=== PATIENT | female | born 1990 | race Hispanic/Latino ===

== ENCOUNTER 2018-08-28 01:51 | Inpatient (IN) | payer OTHER ==
[2018-08-28 02:32] VITALS: BMI 25.6
[2018-08-28] MEDS ORDERED: Lactated Ringer's 1,000 ML IV SCH (02:45)
[2018-08-28] MEDS ORDERED: Penicillin G Potassium 5 MU in Sodium Chloride 0.9% 50 ML IVPB ONE (02:45)
[2018-08-28] MEDS ORDERED: Lactated Ringer's 1,000 ML IV ONE (02:45)
--- NOTE | 2018-08-28 02:55 | OBADHP ---
Datetime: 08/28/2018 02:47 Admit Comment, IP Provider: 27-year-old at 41 weeks and 2 days gestational age with spontaneou s rupture of membranes. Patient reports gush of fluid. Patient denies any contractions or vaginal b leeding. Patient reports good movement. records reviewed. Past medical history anemia Past surgical history denies Medications vitamins, ferrous sulfate No known drug allergies Obstetrical history Assessment: Spontaneous rupture of membranes, heart tracing category 1, GBS positive Plan: Admit for management of labor and delivery Penicillin G IV for GBS prophylaxis Observation at this time, consider Pitocin augmentation if indicated Discussed plan with patient and all patient questions answered. Pelvic Type - PN: Adequate Extremities - PN: Normal Abdomen - PN: Normal Back - PN: Normal Breast - PN: Normal Lungs - PN: Normal Heart - PN: Normal Thyroid - PN: Normal Neurologic - PN: Normal HEENT - PN: Normal General - PN: Normal FHR - Baseline A Provider: 120s Amniotic Fluid Color, Provider: Clear Membranes, Provider: Ruptured Contraction Comments Provider: q2-4min Comments, ACOG Physical Exam: Adequate pelvis Cephalic via exam Estimated weight 7-1/2 pounds Pool Provider: Positive IP Hx Assessment: The History has been Reviewed and is Current Vital Signs Provider: Reviewed; Within Normal Limits IP Chief Complaint: Suspected ruptured membranes NICHD Variability Prov Fetus A: Moderate 6-25bpm NICHD Accel Fetus A IP Provider: 15X15 FHR Category Provider Fetus A: Category I NICHD Decel Fetus A IP Provider: None Dilatation, Provider: 1 Effacement, Provider: 25 Station, Provider: -2 Genitourinary Exam: Normal DTRs - PN: Normal EGA AdmitDate IP: 41.2 IP Adm Impression: Term, intrauterine ; No Active Labor; Ruptured Membranes IP Admit Plan: Admit to unit
[2018-08-28 03:33] VITALS: O2SAT 100
[2018-08-28 04:04] LABS: BASO % 0.1 % (0.0-2.0); EOS # 0.1 K/uL (0.0-0.7); EOS % 0.9 % (0.0-4.0); HEMOGLOBIN 11.4 g/dL (12.0-16.0); LYMPH # 1.6 K/uL (1.0-4.3); LYMPH % 13.4 % (20.0-40.0); MEAN CELL VOLUME 90.1 fl (81.0-99.0); MEAN CORPUSCULAR HEMOGLOBIN 30.7 pg (27.0-31.0); MEAN CORPUSCULAR HGB CONC 34.1 g/dL (33.0-37.0); MEAN PLATELET VOLUME 9.2 fl (7.2-11.7); MONO # 0.9 K/uL (0.0-0.8); MONO % 7.3 % (0.0-10.0); NEUT # 9.2 K/uL (1.8-7.0); NEUT % 78.3 % (50.0-75.0); NRBC % 0.1 % (0.0-0.0); RBC 3.71 Mil/uL (3.80-5.20); RED CELL DISTRIBUTION WIDTH 14.6 % (11.5-14.5); WHITE BLOOD COUNT 11.8 K/uL (4.8-10.8)
[2018-08-28] MEDS ORDERED: Oxytocin 30 UNIT in NS 500 ml 30 UNITS/500 ML BAG IV ONE (09:40)
[2018-08-28] MEDS: Lactated Ringer's 1,000 ML IV SCH ×3 (12:14→20:14)
--- NOTE | 2018-08-28 12:46 | OBPN ---
Datetime: 08/28/2018 12:27 IP Procedures: Sterile Vag Exam IP Progress Plan: Continue present management; Augmentation Contraction Comments Provider: q2-3min FHR - Baseline A Provider: 120s IP Progress Note Comment: Patient requesting nitrous oxide. heart tracing category 1. Discus sed plan with patient and all patient questions answered. NICHD Accel Fetus A IP Provider: 15X15 FHR Category Provider Fetus A: Category I NICHD Variability Prov Fetus A: Moderate 6-25bpm Dilatation, Provider: 3 Effacement, Provider: 100 Station, Provider: -2 NICHD Decel Fetus A IP Provider: None Datetime: 08/28/2018 02:47 Pool Provider: Positive Membranes, Provider: Ruptured Amniotic Fluid Color, Provider: Clear Vital Signs Provider: Reviewed; Within Normal Limits
--- NOTE | 2018-08-28 14:03 | OBPN ---
Datetime: 08/28/2018 13:59 IP Procedures: Sterile Vag Exam IP Progress Plan: Continue present management; Augmentation Contraction Comments Provider: q2-3min FHR - Baseline A Provider: 120s-130s IP Progress Note Comment: Pt requesting IV pain medication. FHT category I. IV nubain ordered. Co ntinue current management. Discussed plan with patient and all patient questions answered. Vital Signs Provider: Reviewed; Within Normal Limits NICHD Accel Fetus A IP Provider: 15X15 FHR Category Provider Fetus A: Category I NICHD Variability Prov Fetus A: Moderate 6-25bpm Dilatation, Provider: 4 Effacement, Provider: 100 Station, Provider: -1 NICHD Decel Fetus A IP Provider: None
[2018-08-28] MEDS ORDERED: Nalbuphine HCL 10 mg/ml Ampule ONE (14:27)
[2018-08-28] MEDS ORDERED: Nalbuphine HCL 10 mg/ml Ampule IVP ONE (14:30)
[2018-08-28] MEDS ORDERED: Fentanyl/Bupivacaine HCl 250 ML EPI ONE (15:33)
--- NOTE | 2018-08-28 19:10 | OBPN ---
Datetime: 08/28/2018 19:05 IP Procedures: Sterile Vag Exam IP Progress Plan: Continue present management; Augmentation Contraction Comments Provider: q2-3min FHR - Baseline A Provider: 120s-130s IP Progress Note Comment: Pt resting comfortably s/p epidural. FHT category I. Plan to continue cu rrent management. Discussed plan with patient and all patient questions answered. Vital Signs Provider: Reviewed; Within Normal Limits NICHD Accel Fetus A IP Provider: 15X15 FHR Category Provider Fetus A: Category I NICHD Variability Prov Fetus A: Moderate 6-25bpm Dilatation, Provider: 9 Effacement, Provider: 100 Station, Provider: 0 NICHD Decel Fetus A IP Provider: None
[2018-08-28] MEDS ORDERED: Bupivacaine HCl 0.25% PF (10 ml) Inj ONE (20:58)
[2018-08-28] MEDS ORDERED: Lidocaine 1% Inj (20ml) ONE (23:54)
[2018-08-29] MEDS ORDERED: Oxycodone/Acetaminophen 5/325 mg Tab PO PRN ×2 (00:33)
[2018-08-29] MEDS ORDERED: Benzocaine/Menthol SPRAY TOP PRN (00:33)
[2018-08-29] MEDS ORDERED: Oxytocin 30 UNIT in NS 500 ml 30 UNITS/500 ML BAG IV ONE (01:29)
[2018-08-29] MEDS ORDERED: OXYTOCIN/0.9 % NS 20 UNIT/1,000 ML BAG IV SCH (01:30)
[2018-08-29 06:18] LABS: HEMOGLOBIN 9.6 g/dL (12.0-16.0); MEAN CELL VOLUME 89.4 fl (81.0-99.0); MEAN CORPUSCULAR HEMOGLOBIN 30.4 pg (27.0-31.0); RBC 3.16 Mil/uL (3.80-5.20); RED CELL DISTRIBUTION WIDTH 14.7 % (11.5-14.5); WHITE BLOOD COUNT 16.9 K/uL (4.8-10.8)
--- NOTE | 2018-08-29 10:27 | OBPPN ---
Datetime: 08/29/2018 10:22 PP Pain Prov: Within normal limits PP Nausea Prov: Denies PP Flatus Prov: Yes PP Breasts Prov: Normal PP Heart Prov: Normal PP Lungs Prov: Normal PP Abdomen/Uterus Prov: Normal PP Lochia Prov: Normal PP Vulva/Perineum Prov: Normal PP CVA Tenderness Prov: Normal PP Extremities Prov: Normal PP Comments Phys Exam Prov: Fundus firm under umbilicus PP Impression Prov: Normal progression PP Plan Prov: Continue present management PP Progress Note Prov: Patient denies CP, no SOB, no N/V, tolerating PO diet, ambulating/voiding wel l, mild lochia, abdominal pain tolerable with meds A/P PPD #0 1. Continue post- orders 2. Motrin prn pain 3. Encourage ambulation/ IP PP Procedures: None Vital Signs Provider PP: Reviewed; Within Normal Limits
--- NOTE | 2018-08-30 10:21 | OBPPN ---
Datetime: 08/30/2018 10:19 PP Pain Prov: Within normal limits PP Nausea Prov: Denies PP Flatus Prov: Yes PP BM Prov: Yes PP Breasts Prov: Normal PP Heart Prov: Normal PP Lungs Prov: Normal PP Abdomen/Uterus Prov: Normal PP Lochia Prov: Normal PP Vulva/Perineum Prov: Normal PP CVA Tenderness Prov: Normal PP Extremities Prov: Normal PP Impression Prov: Normal progression PP Plan Prov: Discharge PP Progress Note Prov: She feels fine No dizziness; no VB H/H 02/25 A: S/P day 2 anemia asymptomatic PLAN: Fe Follow up 6w Vital Signs Provider PP: Reviewed; Within Normal Limits
--- NOTE | 2018-08-30 10:26 | OBDCSUM ---
Datetime: 08/30/2018 10:20 Discharged to, Provider: Home Follow up at, Provider: Gregorio Disch Instr Activity: Normal activity Disch Instr Diet: Regular Discharge Instructions, Provider: Routine instructions given Discharge Diagnosis, Provider: Term Delivered Follow up in weeks, Provider: 6w Disch Referrals: None Contraception discussed, Prov: Yes Disch Activity Restrictions: No sexual activity; Nothing in vagina - [place], tampons, douche
--- NOTE | 2018-08-30 10:26 | OBDS ---
DELIVERY PERSONNEL Delivery Doctor: Carla Manriquez DO Scalping Machine Operator: Beatriz Ribera RN Anesthesiologist: Cuco Lindsey MD MATERNAL INFORMATION Delivery Anesthesia: Local; Epidural Medications in Delivery: Oxytocin Placenta Cultured: No Maternal Complications: None Provider Comments: Over intact perineum, of live infan female. Once the head was delivered, sh e attempted to push once. [place] and suprapubic pressure applied. With next CTX, infant was deli hollie. Mother was assisted to place baby onto her chest. was crying spontaneously. AGPAR 9 ,9. Cord blood was obtained. Stem cell collection was performed. Placenta was delivered intact spo ntaneoulsy. EBL 100cc. She remained stable LABOR SUMMARY EDC: 08/19/2018 00:00 No. Babies in Womb: 1 Attempted: No Labor Anesthesia: Epidural LABOR INFORMATION Reason for Induction: Not Applicable Onset of Labor: 08/28/2018 17:00 Complete Dilatation: 08/29/2018 22:20 Oxytocin: Augmentation Group B Beta Strep: Positive Antibiotics # of Doses: 5 Antibiotics Time of Last Dose: 2011 Steroids Given: None Reason Steroids Not Administered: Not Applicable MEMBRANES Membranes Rupture Method: Spontaneous Rupture of Membranes: 08/28/2018 00:40 Length of Rupture (hrs): 23.43 Amniotic Fluid Color: Clear Amniotic Fluid Amount: None Amniotic Fluid Odor: Normal STAGES OF LABOR Stage 1 hrs: 29 Stage 1 min: 20 Stage 2 hrs: -22 Stage 2 min: -14 Stage 3 hrs: 0 Stage 3 min: 15 Total Time in Labor hrs: 7 Total Time in Labor min: 21 VAGINAL DELIVERY Episiotomy: None Laceration Extension: First Degree Laceration Type: Perineal Laceration Repair: Yes Laceration Repair Note: 1% Lidocaine infiltrated (2cc). 1st degree laceration repaired with 2.0 Vito ryl Rapide suture (figure of eight) once Initial Vag Sponge Count: 5 Final Vag Sponge Count: 5 Initial Vag Sharps Count: 2 Final Vag Sharps Count: 2 Sponge Count Correct: Yes Sharps Count Correct: Yes Count Comment: 5 lap pads one syringe BABY A INFORMATION Infant Delivery Date/Time: 08/29/2018 00:06 Method of Delivery: Vaginal Born in Route : No : N/A Forceps: N/A Vacuum Extraction: N/A Shoulder Dystocia : Yes SHOULDER DYSTOCIA BABY A Delivery of Head: 08/29/2018 00:05 Delivery Date/Time: 08/29/2018 00:06 Time Head to Delivery : 1.0 1st Intervention to Resolve: Gentle Attempt at Traction, Assisted by Maternal Expulsive Efforts 2nd Intervention to Resolve: McRobert's Maneuver 3rd Intervention to Resolve: Suprapubic Pressure Verify NO Fundal Pressure: No Fundal Pressure Applied Arm Under Symphisis at Del: Right PRESENTATION/POSITION BABY A Presentation: Cephalic Cephalic Presentation: Vertex Vertex Position: Right Occipital Anterior Breech Presentation: N/A PLACENTA INFORMATION BABY A Placenta Delivery Time : 08/29/2018 00:21 Placenta Method of Delivery: Spontaneous Placenta Status: Delivered SCORES BABY A Heart Rate 1 min: >100 bpm Resp Effort 1 min: Good Cry Reflex Irritability 1 min: Cough or Sneeze or Pulls Away Muscle Tone 1 min: Active Motion Color 1 min: Body [place], Extremities Blue Resuscitation Effort 1 min: Tactile Stimulation SCORE 1 MIN: 9 Heart Rate 5 min: >100 bpm Resp Effort 5 min: Good Cry Reflex Irritability 5 min: Cough or Sneeze or Pulls Away Muscle Tone 5 min: Active Motion Color 5 min: Body [place], Extremities Blue Resuscitation Effort 5 min: Tactile Stimulation SCORE 5 MIN: 9 INFANT INFORMATION BABY A Gestational Age at Delivery: 41.3 Gestational Status: Term Outcome : Liveborn Infant Condition : Stable Infant Sex: Female IDENTIFICATION/MEDS BABY A ID Band Number: [id number] ID Band Location: Left Leg; Left Arm WEIGHT/LENGTH BABY A Infant Birthweight (gms): 3330 Infant Weight (lb): 7 Weight (oz): 5 CORD INFORMATION BABY A No. Cord Vessels: 3 Nuchal Cord : N/A Cord Blood Taken: Yes Suction: Mouth; Nose ASSESSMENT BABY A Infant Complications: None Physical Findings at Delivery: Within Normal Limits Respirations: Appears Normal Herbarium Curator/ALS Called : No Care By: Kasia Ribera RN Transferred To: Remains with Mother
--- NOTE | 2018-08-30 10:27 | OBDS ---
DELIVERY PERSONNEL Delivery Doctor: Carla Manriquez DO Adjunct Faculty Instructor: Beatriz Ribera RN Anesthesiologist: Cuco Lindsey MD MATERNAL INFORMATION Delivery Anesthesia: Local; Epidural Medications in Delivery: Oxytocin Placenta Cultured: No Maternal Complications: None Provider Comments: Over intact perineum, of live infan female. Once the head was delivered, sh e attempted to push once. Lizette and suprapubic pressure applied. With next CTX, infant was deli hollie. Mother was assisted to place baby onto her chest. was crying spontaneously. AGPAR 9 ,9. Cord blood was obtained. Stem cell collection was performed. Placenta was delivered intact spo ntaneoulsy. EBL 100cc. She remained stable LABOR SUMMARY EDC: 08/19/2018 00:00 No. Babies in Womb: 1 Attempted: No Labor Anesthesia: Epidural LABOR INFORMATION Reason for Induction: Not Applicable Onset of Labor: 08/28/2018 17:00 Complete Dilatation: 08/29/2018 22:20 Oxytocin: Augmentation Group B Beta Strep: Positive Antibiotics # of Doses: 5 Antibiotics Time of Last Dose: 2011 Steroids Given: None Reason Steroids Not Administered: Not Applicable MEMBRANES Membranes Rupture Method: Spontaneous Membranes Rupture Method: Spontaneous Membranes Rupture Method: Spontaneous Rupture of Membranes: 08/28/2018 00:40 Rupture of Membranes: 08/28/2018 00:40 Rupture of Membranes: 08/28/2018 00:40 Length of Rupture (hrs): 23.43 Length of Rupture (hrs): 23.43 Length of Rupture (hrs): 23.43 Amniotic Fluid Color: Clear Amniotic Fluid Color: Clear Amniotic Fluid Color: Clear Amniotic Fluid Amount: None Amniotic Fluid Amount: Moderate Amniotic Fluid Amount: Moderate Amniotic Fluid Odor: Normal Amniotic Fluid Odor: Normal Amniotic Fluid Odor: Normal STAGES OF LABOR Stage 1 hrs: 29 Stage 1 min: 20 Stage 2 hrs: -22 Stage 2 min: -14 Stage 3 hrs: 0 Stage 3 min: 15 Total Time in Labor hrs: 7 Total Time in Labor min: 21 VAGINAL DELIVERY Episiotomy: None Laceration Extension: First Degree Laceration Type: Perineal Laceration Repair: Yes Laceration Repair Note: 1% Lidocaine infiltrated (2cc). 1st degree laceration repaired with 2.0 Vito ryl Rapide suture (figure of eight) once Initial Vag Sponge Count: 5 Final Vag Sponge Count: 5 Initial Vag Sharps Count: 2 Final Vag Sharps Count: 2 Sponge Count Correct: Yes Sharps Count Correct: Yes Count Comment: 5 lap pads one syringe BABY A INFORMATION Infant Delivery Date/Time: 08/29/2018 00:06 Method of Delivery: Vaginal Born in Route : No : N/A Forceps: N/A Vacuum Extraction: N/A Shoulder Dystocia : Yes SHOULDER DYSTOCIA BABY A Delivery of Head: 08/29/2018 00:05 Infant Delivery Date/Time: 08/29/2018 00:06 Time Head to Delivery : 1.0 1st Intervention to Resolve: Gentle Attempt at Traction, Assisted by Maternal Expulsive Efforts 2nd Intervention to Resolve: McRobert's Maneuver 3rd Intervention to Resolve: Suprapubic Pressure Verify NO Fundal Pressure: No Fundal Pressure Applied Arm Under Symphisis at Del: Right PRESENTATION/POSITION BABY A Presentation: Cephalic Presentation: Cephalic Cephalic Presentation: Vertex Vertex Position: Right Occipital Anterior Breech Presentation: N/A PLACENTA INFORMATION BABY A Placenta Delivery Time : 08/29/2018 00:21 Placenta Method of Delivery: Spontaneous Placenta Status: Delivered SCORES BABY A Heart Rate 1 min: >100 bpm Resp Effort 1 min: Good Cry Reflex Irritability 1 min: Cough or Sneeze or Pulls Away Muscle Tone 1 min: Active Motion Color 1 min: Body [place], Extremities Blue Resuscitation Effort 1 min: Tactile Stimulation SCORE 1 MIN: 9 Heart Rate 5 min: >100 bpm Resp Effort 5 min: Good Cry Reflex Irritability 5 min: Cough or Sneeze or Pulls Away Muscle Tone 5 min: Active Motion Color 5 min: Body [place], Extremities Blue Resuscitation Effort 5 min: Tactile Stimulation SCORE 5 MIN: 9 INFANT INFORMATION BABY A Gestational Age at Delivery: 41.3 Gestational Status: Term Outcome : Liveborn Condition : Stable Infant Sex: Female IDENTIFICATION/MEDS BABY A ID Band Number: [id number] ID Band Location: Left Leg; Left Arm WEIGHT/LENGTH BABY A Birthweight (gms): 3330 Weight (lb): 7 Infant Weight (oz): 5 CORD INFORMATION BABY A No. Cord Vessels: 3 Nuchal Cord : N/A Cord Blood Taken: Yes Suction: Mouth; Nose ASSESSMENT BABY A Infant Complications: None Physical Findings at Delivery: Within Normal Limits Infant Respirations: Appears Normal Manager Spring/ALS Called : No Care By: Kasia Ribera RN Transferred To: Remains with Mother
[2018-08-30 20:19] VITALS: BP 115/66; PULSE 92; RESP 19; TEMP 98.1
== END 2018-08-30 15:25 | disposition home or self-care (01) | DRG 807 ==
LOC: H.EROB2 01:51 → H.ERHOLD 02:51 → H.L&D 03:27 → H.OB/GYN 08-29 03:30
PROVIDERS: ADMIT Obstetrics & Gynecology; ATTEND Obstetrics & Gynecology
PROC: 4A1HXCZ Monitoring of Products of Conception, Cardiac Rate, External Approach (ICD-10-PCS; 2018-08-28)
PROC: 10E0XZZ Delivery of Products of Conception, External Approach (ICD-10-PCS; principal; 2018-08-29)
PROC: 0HQ9XZZ Repair Perineum Skin, External Approach (ICD-10-PCS; 2018-08-29)
DX: O48.0 Post-term pregnancy (principal); Z37.0 Single live birth; Z3A.41 41 weeks gestation of pregnancy; O70.0 First degree perineal laceration during delivery; O99.824 Streptococcus B carrier state complicating childbirth; O99.02 Anemia complicating childbirth; O66.0 Obstructed labor due to shoulder dystocia